=== PATIENT | female | born 1995 ===

== ENCOUNTER 2018-03-26 17:45 | Emergency (ER) | payer SELFPAY ==
--- NOTE | 2018-03-26 18:08 | ED PDOC ---
HPI: Headache Time Seen by Provider: 03/26/18 17:56 Chief Complaint (Nursing): Headache Chief Complaint (Provider): Migraine Headache History Per: Patient History/Exam Limitations: no limitations Onset/Duration Of Symptoms: Hrs Current Symptoms Are (Timing): Still Present Severity: None Quality: "Pain" Associated Symptoms: Photophobia, Nausea, Vomiting Additional Complaint(s): 23 year old female presents to the emergency department complaining of a migraine headache which began around 3am this morning. Pt. states she was already awake when headache began. States headache was gradual in onset and has progressively worsened. Patient reports that she was seen by a doctor a long time ago for her migraine headaches but was not prescribed any medications nor did she have any imaging done. She states she last took excedrin at 11am. (+) nausea and (+) vomiting. Denies head trauma, fever, hematemesis, abdominal pain. - Risk Factors SAH Risk Factors: Nest Degree Relative(s) W/SAH, Sudden Onset Of Pain Past Medical History Reviewed: Historical Data, Nursing Documentation, Vital Signs Vital Signs: Last Vital Signs Temp 97.9 F 03/26/18 17:55 Pulse 55 L 03/26/18 17:55 Resp 16 03/26/18 17:55 BP 100/63 03/26/18 17:55 Pulse Ox 100 03/26/18 17:55 - Medical History PMH: Migraine - Surgical History Surgical History: No Surg Hx - Family History Family History: States: Other Other Family History: Migraine - Mother - Home Medications Home Medications: Ambulatory Orders Medication Instructions Recorded Ibuprofen [Motrin Tab] 600 mg PO Q6 PRN #12 tab 03/26/18 Metoclopramide [Reglan] 10 mg PO TID PRN #10 tab 03/26/18 - Allergies Allergies/Adverse Reactions: Allergies Allergy/AdvReac Type Severity Reaction Status Date / Time No Known Allergies Allergy Verified 03/26/18 17:57 Review of Systems ROS Statement: Except As Marked, All Systems Reviewed And Found Negative Constitutional: Negative for: Weakness Eyes: Positive for: Other (photophobia) Gastrointestinal: Positive for: Nausea, Vomiting Neurological: Positive for: Headache (migraine) Physical Exam - Physical Exam Appears: Positive for: Well, Non-toxic, In Acute Distress (mild painful) Head Exam: Positive for: ATRAUMATIC, NORMAL INSPECTION, NORMOCEPHALIC Skin: Positive for: Normal Color, Warm, Dry. Negative for: Diaphoresis, Rash Eye Exam: Positive for: Normal appearance, EOMI, PERRL, Other (light sensitivity ) ENT: Positive for: Normal ENT Inspection, TM Is/Are (non-erythematous, non- bulging b/l). Negative for: Nasal Congestion, Tonsillar Exudate Neck: Positive for: Normal, Painless ROM, Supple Cardiovascular/Chest: Positive for: Regular Rate, Rhythm, Chest Non Tender. Negative for: Tachycardia Respiratory: Positive for: Normal Breath Sounds. Negative for: Rales, Rhonchi, Wheezing, Respiratory Distress Gastrointestinal/Abdominal: Positive for: Normal Exam, Bowel Sounds, Soft. Negative for: Tenderness, Mass, Guarding, Rebound Back: Positive for: Normal Inspection. Negative for: L CVA Tenderness, R CVA Tenderness Extremity: Positive for: Normal ROM. Negative for: Tenderness, Deformity, Swelling Neurologic/Psych: Positive for: Alert, Oriented, Gait (steady w/o assistance). Negative for: Motor/Sensory Deficits, Aphasia, Facial Droop - ECG O2 Sat by Pulse Oximetry: 100 (RA) Pulse Ox Interpretation: Normal Medical Decision Making Medical Decision Makin Initial Impression 23 year old female presenting with migraine headche Initial Plan: * CT Head w/o Contrast * Upreg * Toradol 30mg IM * Zofran 4mg PO 1948 On re-evaluation, pt. seen talking on cell phone. Reports headache has improved drastically but is still present. Does not want any more meds. Pending CT results. 2024 CT head w/o contrast: negative Pt. informed of results. Reports headache has completely resolved. Advised to f/u with Dr. Richardson, neurologist telephone supervisor, for further evaluation but is to return to ED if symptoms worsen. --- Documented by Juju Bhatt acting as a scribe for Hu Brown PA-C. All medical record entries made by the Scribe were at my direction and personally dictated by me. I have reviewed the chart and agree that the record accurately reflects my personal performance of the history, physical exam, medical decision making, and the department course for this patient. I have also personally directed, reviewed, and agree with the discharge instructions and disposition. Disposition - Clinical Impression Clinical Impression: Acute headache - Patient ED Disposition Is Patient to be Admitted: No - Disposition Referrals: [facility] [Outside] [facility] [Outside] Guzman Richardson MD [Medical Doctor] - Disposition: Routine/Home Disposition Time: 20:27 Condition: IMPROVED Additional Instructions: Follow up with [facility] or Dr. Richardson (neurologist) for further evaluation Return to ED immediately if symptoms worsen Prescriptions: Ibuprofen [Motrin Tab] 600 mg PO Q6 PRN #12 tab PRN Reason: Headache Metoclopramide [Reglan] 10 mg PO TID PRN #10 tab PRN Reason: headache or nausea Instructions: Acute Headache (ED) Forms: [facility] (Guyanese)
[2018-03-26 19:37] VITALS: PULSE 65
[2018-03-26 20:42] VITALS: BP 131/65; RESP 18; TEMP 97.2; O2SAT 99
--- NOTE | 2018-03-27 08:17 | CT ---
PROCEDURE: CT HEAD WITHOUT CONTRAST. HISTORY: headache COMPARISON: None available. TECHNIQUE: Axial computed tomography images were obtained through the head/brain without intravenous contrast. Radiation dose: Total exam DLP = mGy-cm. This CT exam was performed using one or more of the following dose reduction techniques: Automated exposure control, adjustment of the mA and/or kV according to patient size, and/or use of iterative reconstruction technique. FINDINGS: HEMORRHAGE: No intracranial hemorrhage. BRAIN: No mass effect or edema. No atrophy or chronic microvascular ischemic changes. VENTRICLES: Unremarkable. No hydrocephalus. CALVARIUM: Unremarkable. PARANASAL SINUSES: Unremarkable as visualized. No significant inflammatory changes. MASTOID AIR CELLS: Unremarkable as visualized. No inflammatory changes. OTHER FINDINGS: None. IMPRESSION: Normal CT of the Head.
== END 2018-03-26 20:42 | disposition home or self-care (01) ==
LOC: H.ER 17:45
DX: G43.909 Migraine, unspecified, not intractable, without status migrainosus (principal)
CPT/HCPCS: 70450; 81025; 96372; 99285; J1885